=== PATIENT | male | born 1935 | race Caucasian/White ===

== ENCOUNTER → 2017-08-24 | Outpatient (CLI) | payer MEDICARE ==
[~2017-08-24] MED LIST: ACET-2031 PO; AZIT-101 PO; CALC-605 PO; CEFU250 PO; CELE-1 PO; CITA-157 PO; CYAN100088 PO; ENOX120D5 SQ; GOUT MEDICATION; OXYIR PO; PRAV20TA65 PO; SIMV-42 PO; UBID50CA; WAR5 PO
[2017-08-24 13:33] LABS: PLATELET COUNT, AUTOMATED 312 K/uL (150-450)
--- NOTE | 2017-08-24 13:51 | RADIOLOGY IMAGING REPORT ---
FACILITY: [facility] PATIENT NAME: Pacheco Page : 1935 MR: [id number] V: [id number] EXAM DATE: ORDERING PHYSICIAN: [facility] TECHNOLOGIST: Location: [facility] [place] Patient: Pacheco Page : 1935 Visit/Account:[id number] Date of Sevice: 08/24/2017 KIDNEYS EXAMINATION: Renal ultrasound. History: Chronic kidney disease stage III COMPARISON STUDIES: FINDINGS: Kidneys: Right kidney- 7.8 x 4.3 x 4.1 cm Left kidney- 9 x 4.6 x 3.8 cm Uniform and symmetric blood flow in each kidney by Doppler ultrasound. Hydronephrosis: none Resistive index on the right 0.76 on the left 0.77 Cortical thickness on the right is 1 cm cortical thickness on the left is 9 mm. There is a hypoechoic space-occupying process projecting from the lateral aspect of the mid to lower pole the left kidney measuring 2.1 cm in diameter Bladder: Prevoid volume 150 mL. Postvoid residual 14 mL. Bilateral ureteral jets are present Abdominal aorta and IVC: Aorta and IVC are patent by Doppler ultrasound. IMPRESSION: There is a 2.1 cm hypoechoic space-occupying process projecting from the lateral aspect of mid to low er pole the left kidney further evaluation with CT or MR is recommended Report Dictated By: Eleanor Galo MD at 08/24/2017 1:43 PM Report E-Signed By: Eleanor Galo MD at 08/24/2017 1:47 PM WSN:[email or web address]
== END ==
LOC: LAB 00:16
DX: N29 Other disorders of kidney and ureter in diseases classified elsewhere (principal); N18.3 Chronic kidney disease, stage 3 (moderate); R03.0 Elevated blood-pressure reading, without diagnosis of hypertension
CPT/HCPCS: 36415; 76705; 82040; 82310; 82374; 82435; 82565; 82570; 82728; 82947; 83540; 83970; 84100; 84132; 84156; 84295; 84520; 84550; 85025

== ENCOUNTER → 2017-09-07 | Outpatient (CLI) | payer MEDICARE ==
--- NOTE | 2017-09-07 13:23 | RADIOLOGY IMAGING REPORT ---
FACILITY: [facility] [place] PATIENT NAME: Pacheco Page : 1935 MR: [id number] V: [id number] EXAM DATE: ORDERING PHYSICIAN: FIDENCIO MEJÍA TECHNOLOGIST: Location: [facility] Patient: Pacheco Page : 1935 Visit/Account:[id number] Date of Sevice: 09/07/2017 ABDOMEN/PELVIS W/O CONTRAST HISTORY: Renal lesion TECHNIQUE: Axial images acquired through the abdomen/pelvis. Coronal and sagittal reformatting also performed. No IV contrast administered. Dose Lowering Technique One of the following dose optimization techniques was utilized in the performance of this exam: Autom ated exposure control; adjustment of the mA and/or kV according to the patient's size; or use of an i terative reconstruction technique. Specific details can be referenced in the facility's radiology C T exam operational policy. COMPARISON: Renal ultrasound August 24, 2017 FINDINGS: Visualized lung bases: There Is coarse linear stranding with a small amount of adjacent airspace con solidation in the posterior aspect of the right lower lobe which may represent scarring or infiltrate . There is a small calcified granuloma in the left lower lobe . Hepatobiliary: Negative. Spleen: Negative. Adrenals: Negative. Pancreas: Negative. Kidneys ureters and bladder: There are numerous nonobstructing calculi in both renal collecting syste ms measuring up to 3 mm. No evidence of hydronephrosis or hydroureter the kidneys are not ideally ev aluated due to the lack of intravenous contrast. There is a 1.8 cm soft tissue protuberance extendin g from the lateral aspect the mid to lower pole the left kidney which likely accounts for the ultraso und findings. This could represent a solid mass Genitalia: Prostate gland is moderately enlarged contains coarse calcifications and impinges upon th e floor the urinary bladder GI: There is a small hiatal hernia. There is very mild diverticulosis of the sigmoid there is very mild colonic diverticulosis although n o CT evidence of acute diverticulitis Vessels/spaces/nodes: Mild vascular calcifications Bones/soft tissues: There is a small umbilical hernia containing fat small sclerotic density of the left side of the L2 vertebral body could represent a bone island. There Is a slightly mottled lucenc y to this vertebral body as well which could represent hemangioma although other osseous lesion not t otally excluded Additional findings: None pertinent. IMPRESSION: Coarse linear stranding with small amount of adjacent airspace consolidation in the posterior aspect right lower lobe may represent scarring or infiltrate. Numerous nonobstructing calculi in both renal collecting systems measuring up to 3 mm There is a 1.8 cm soft tissue protuberance extending from the lateral aspect of the mid to lower pole the left kidney which likely accounts for the sonographic findings. This could represent a solid ma ss although is not well characterized due to the lack of intravenous contrast. Further evaluation wi th CT or MR with contrast recommended. If the patient is unable to receive IV contrast MR of the abd omen without contrast is recommended. Small hiatal hernia Mild diverticulosis of the sigmoid colon Small sclerotic density left side of the L2 vertebral body which could represent a bone island. Ther e is a slightly mottled lucency also of the L2 vertebral body which may represent a hemangioma althou gh other osseous lesions are not totally excluded. Report Dictated By: Eleanor Galo MD at 09/07/2017 11:48 AM Report E-Signed By: Eleanor Galo MD at 09/07/2017 1:19 PM WSN:[email or web address]
== END ==
LOC: CT 01:02
PROVIDERS: ATTEND Internal Medicine Nephrology
DX: N20.0 Calculus of kidney (principal); R91.8 Other nonspecific abnormal finding of lung field; N28.89 Other specified disorders of kidney and ureter; N40.0 Benign prostatic hyperplasia without lower urinary tract symptoms; N40.2 Nodular prostate without lower urinary tract symptoms; K44.9 Diaphragmatic hernia without obstruction or gangrene; K57.32 Diverticulitis of large intestine without perforation or abscess without bleeding; I70.8 Atherosclerosis of other arteries; K42.9 Umbilical hernia without obstruction or gangrene
CPT/HCPCS: 74176

== ENCOUNTER → 2018-02-21 | Outpatient (CLI) | payer MEDICARE ==
--- NOTE | 2018-02-21 14:01 | RADIOLOGY IMAGING REPORT ---
FACILITY: [facility] [place] PATIENT NAME: Pacheco Page : 1935 MR: [id number] V: [id number] EXAM DATE: ORDERING PHYSICIAN: [facility] TECHNOLOGIST: Location: [facility] Patient: Pacheco Page : 1935 Visit/Account:[id number] Date of Sevice: 02/21/2018 Exam type: ORBITS FOREIGN BODY 1 VIEW History: Pre-MRI screening Comparison: Head CT June 07, 2017. Findings: No metallic foreign bodies are seen projecting over the orbits IMPRESSION: 1. No metallic foreign bodies are seen projecting over the orbits Report Dictated By: Eleanor Galo MD at 02/21/2018 1:55 PM Report E-Signed By: Eleanor Galo MD at 02/21/2018 1:56 PM WSN:[email or web address]
--- NOTE | 2018-02-21 17:45 | RADIOLOGY IMAGING REPORT ---
[place] [facility] [place] NAME[place] Pacheco Page : 1935 MR: [id number] V: [id number] EXAM DATE: ORDERING PHYSICIAN: [facility] TECHNOLOGIST: Location: Patient: Pacheco Page : 1935 Visit/Account:[id number] Date of Sevice: 02/21/2018 SHOULDER RIGHT W/O CONTRAST COMPARISON: None. HISTORY: Acute right shoulder pain. TECHNIQUE: Noncontrast multiplanar MRI of the right shoulder utilizing T1 weighted and fluid sensiti ve sequences. CONTRAST: None. FINDINGS: ROTATOR CUFF: Limited assessment because of moderate motion artifact. Motion minimizing sequences we re utilized. There is a full-thickness tear of the supraspinatus tendon at the insertion retracted 8 mm with mild reactive bone marrow edema in the greater tubercle. There is additional undersurface fra andrez of the distal supraspinatus tendon proximal to the full-thickness tear and there is mild suprasp inatus tendinosis. The rest of the rotator cuff tendons are grossly unremarkable and intact given the degree of motion artifact. No appreciable muscle atrophy. Mild supraspinatus muscle edema. BICEPS: Not definitively identified, possibly completely torn, but there is significant motion artif act present limiting assessment. FLUID/BURSA: There is no glenohumeral effusion. Small amount of subacromial/subdeltoid bursal fluid. GLENOHUMERAL JOINT: There is no significant osteoarthritis. Markedly limited assessment for labral p athology because of motion artifact nonarthrogram technique. There may be a diffuse tear of the poste rior labrum extending into the posterior superior labrum. AC JOINT: Moderate acromioclavicular joint osteoarthritis with prominent bony hypertrophy and subcho ndral edema on both sides of the joint. There is a mild undersurface spurring component. No os acromi josey. Type II acromion without definite subacromial spur. BONES: Otherwise normal marrow signal and alignment. There is no Hill-Sachs deformity or osseous Ban kart lesion. OTHER: Negative. IMPRESSION: 1. Limited right shoulder assessment because of moderate motion artifact. 2. Full-thickness supraspinatus tendon tear at the insertion with additional undersurface fraying of the distal tendon proximal to the full-thickness tear. Mild supraspinatus muscle edema. 3. Long head of the biceps tendon is not definitively identified, possibly completely torn but possi edinson not seen because of motion. 4. Moderate AC joint osteoarthritis with mild undersurface spurring. 5. Possible tear of the posterior superior labrum extending through the posterior labrum. Report Dictated By: Melo Ahuja at 02/21/2018 5:35 PM Report E-Signed By: Melo Ahuja at 02/21/2018 5:41 PM WSN:[email or web address]
== END ==
LOC: RAD 13:13
DX: M75.121 Complete rotator cuff tear or rupture of right shoulder, not specified as traumatic (principal)
CPT/HCPCS: 70030